=== PATIENT | female | born 1955 | race Caucasian/White ===

== ENCOUNTER → 2016-12-05 13:37 | Outpatient (CLI) | payer MEDICARE ==
[2013-12-19 15:15] VITALS: BMI 25.3
[~2016-12-05 13:37] MED LIST: ATROVENT 0.02%2.5 ML UPD; CALTRATE-600600 MG PO; CEFTIN500 MG PO; COUMADIN3 MG PO; DUONEB 2.5-0.5 M3 ML UPD; K-DUR20 MEQ PO; LASIX20 MG PO; LASIX40 MG PO; LOPRESSOR25 MG PO; MIRALAX17 GM PO; MUCINEX600 MG PO; NIFEREX CAPSULE60 MG; NIFEREX-150 F1 UDCAP; NORCO 7.5-3251 EACH PO; NYSTATIN ORAL SU5 ML PO; PERCOCET 5/3251 TA1 PO; PRILOSEC20 MG PO; ROBAXIN-750750 MG PO; SALINE NASAL SP45 ML NS; TYLENOL 325 MG325 MG PO; VICOPROFEN 7.5/1 TAB PO; XOPENEX 1.1.25 MG/3 UPD; ZESTORETIC 10/11 TAB PO; ZESTORETIC 20/11 TAB; ZOFRAN4 MG PO
== END | disposition home or self-care (01) ==
LOC: D.LAB 13:37
DX: B18.2 Chronic viral hepatitis C (principal); R97.8 Other abnormal tumor markers

== ENCOUNTER → 2017-07-09 09:00 | Outpatient (CLI) | payer MEDICARE ==
[2013-12-19 15:15] VITALS: BMI 25.3
== END | disposition home or self-care (01) ==
LOC: D.ECHO 05-12 09:00
DX: I27.2 Other secondary pulmonary hypertension (principal)

== ENCOUNTER → 2017-08-24 12:26 | Outpatient (CLI) | payer MEDICARE ==
[2013-12-19 15:15] VITALS: BMI 25.3
== END | disposition home or self-care (01) ==
LOC: D.MAMMO 09:45
DX: Z12.31 Encounter for screening mammogram for malignant neoplasm of breast (principal)

== ENCOUNTER → 2018-01-21 10:04 | Outpatient (CLI) | payer MEDICARE ==
[2013-12-19 15:15] VITALS: BMI 25.3
== END | disposition home or self-care (01) ==
LOC: D.ECHO 10:04
DX: I27.20 Pulmonary hypertension, unspecified (principal)

== ENCOUNTER → 2018-08-06 08:14 | Outpatient (CLI) | payer MEDICARE ==
[2013-12-19 15:15] VITALS: BMI 25.3
== END | disposition home or self-care (01) ==
LOC: D.ECHO 08:14
DX: I27.21 Secondary pulmonary arterial hypertension (principal)

== ENCOUNTER 2018-10-14 15:36 | Inpatient (IN) | payer MEDICARE ==
[~2018-10-14] VITALS: Ht 152.4 cm; Wt 53.2 kg
--- NOTE | ~2018-10-14 | MORECARE ---
CASE MANAGEMENT DISCHARGE SUMMARY PATIENT: ALEJANDRA DEE UNIT: [id number] ADM DATE: 10/14/18 AGE: 62 : 57 SEX: F ROOM/BED: D.2201 AUTHOR: SHALONDA SHI PHYSICIAN: REFERRING PHYSICIAN: MAYRA ZUNIGA DO DATE OF SERVICE: 10/18/18 Discharge Plan Patient Name: ALEJANDRA DEE Facility: [facility]:[place] : 1955 Planned Disposition: Home Anticipated Discharge Date: Discharge Date: Expected LOS: Initial Reviewer: [id number] Initial Review Date: 10/14/2018 Generated: 10/18/18 5:09 pm Comments DCP- Discharge Planning Updated by [email or web address]: Kate Butcher on 10/18/18 3:[address] Patient Name: ALEJANDRA DEE Encounter No: [id number] : 1955 Primary Insurance: [facility] [employer] Anticipated DC Date: Planned Disposition: Home External Planned Provider: : DCP follow-up note: Patient and family in agreement with discharge plan. Family at bedside. Denies discharge needs. No changes to plan. Case management will follow and assist as needed. Kate Butcher DCP- Discharge Planning Updated by [id number]: Brenna Keith on 10/15/18 1:[address] Patient Name: ALEJANDRA DEE Admission Status: Elective Accout number: [id number] Admission Date: 10-14-2018 : 1955 Admission Diagnosis: Attending: MAYRA ZUNIGA Current LOS: 1 Anticipated DC Date: Planned Disposition: Home Primary Insurance: [facility] [employer] Discharge Planning Comments: CM met with patient to assess discharge planning needs. Patient lives independently at home with her and plans to return there at discharge. Her will be the one to take her home. There are steps to her home, but she does not have any trouble with them. She wears 2L of O2 at night that she gets from [facility].. She denies any other DME or HH services. CM will continue to follow and assist with DC planning as needed Field Sales Associate: Brenna Keith DCPIA - Discharge Planning Initial Assessment Updated by [email or web address]: Brenna Keith on 10/15/18 1:57 pm * Is the patient Alert and Oriented? Yes * How many steps to enter\exit or inside your home? yes * PCP Jed * Pharmacy [facility] * Preadmission Environment Home with Family * ADLs Independent * Equipment Oxygen * Other Equipment [employer] * List name and contact numbers for known caregivers / representatives who currently or will assist patient after discharge: Chriss () [phone] * Verbal permission to speak to the caregivers and representatives has been obtained from the patient. N/A * Community resources currently utilized None * Additional services required to return to the preadmission environment? No * Can the patient safely return to the preadmission environment? Yes * Has this patient been hospitalized within the prior 30 days at any hospital? No Coverage Notice Reviewer: [id number] Andree Butcher Notice Issued Date-Time: 10/18/2018 15:58 Notice Type: IM Discharge Notice Notice Delivered To: Patient Relationship to Patient: Self Hot Header Operator Name: Delivery Method: HAND - Hand Delivered Venita Days: Prior Verbal Notification: Recipient Understood Notice: Yes Recipient Signature: Yes Med Rec Note Co-signed by Attending: Coverage Notice Comment: IMM explained, signed, copy given, original placed in MR Last DP export: 10/15/18 1:05 Patient Name: ALEJANDRA DEE Page [id number] at 1609 All edits/amendments must be made on the electronic document DICTATION DATE: 10/18/181608 MARKETING COPYWRITER: JOSE M 10/18/18 160 RPT#: [id number] DC DATE: STATUS: ADM IN [facility] [address] [place] [address] END OF REPORT
--- NOTE | ~2018-10-14 | EC ---
PATIENT:ALEJANDRA DEE DATE OF SERVICE: 10/14/18 SEX: F MEDICAL RECORD: [id number] DATE OF : [birth year] LOCATION:D.[facility] AGE OF PATIENT: 62 ADMISSION DATE: 10/14/18 REFERRING PHYSICIAN: INTERPRETING PHYSICIAN: SHABBIR KAMARA MD ECHOCARDIOGRAM REPORT ECHO CHARGES 4 ECHO COMPLETE Date: 10/17/18 CLINICAL DIAGNOSIS: PULMONARY HTN ECHOCARDIOGRAPHIC MEASUREMENTS (adult normal given) AC root (d.<3.7cm) 2.4 cm LV Septum d (<1.2 cm> 1.3 cm Valve Excursion 0.9 cm LV Septum (systole) 1.4 cm Left Atria (s.<4.0cm> 4.0 cm LVPW d(<1.2cm) 1.4 cm RV (d.<2.3cm) 5.1 cm LVPW (sytole) 1.6 cm LV diastole(<5.6CM) 4.0 cm MV E-F(>70mm/sec) cm LV systole 2.7 cm LVOT Diameter 1.7 cm MV exc.(>10mm) 1.9 cm Est.ejection fraction (50-75%) % DOPPLER: LVIT cm/sec A 110 cm/sec E 61.0 cm/sec LA cm/sec RVSP 66 mmHg LVOT 145 cm/sec AOP1/2T m/s Asc. Ao 238 cm/sec RVOT 118 cm/sec RA cm/sec PA 212 cm/sec AV Gradient Peak 22.65mmHg AV Mean 13.10mmHg AV Area 1.6 cm MV Gradient Peak 8.03 mmHg MV Mean 2.46 mmHg MV Area cm COMMENTS: Healthcare Sales Representative: 2 MAREK ALCARAZ Director Audience Marketing: 3 Dr. Wolf TAPE# PACS Pericardial Effusion N DATE OF SERVICE: 10/18/2018 Adequate 2D, color flow, spectral Doppler, and M-mode. LVH is present. LV internal dimensions are normal. Wall motion is normal. EF is greater than or equal to 55%. Aortic valve sclerosis with minimal restriction of leaflet motion. Peak gradient of 21 mmHg putting this at the mild range. Left atrium is normal at 4.1 cm. Mitral valve shows no prolapse. Mild MR. Right-sided chambers are grossly normal. Mild TR. ECHOCARDIOGRAM REPORT [id number] ALEJANDRA DEE TRANSINT:[id number] Voice Confirmation ID: [id number] DOCUMENT ID: [id number] SHABBIR KAMARA MD at 1546 CC: [id number] DICTATION DATE: 10/18/18 1015 DIRECTOR OF PATIENT FINANCIAL SERVICES: 10/18/18 1108 DIS IN 10/18/18 [place] [id number] [place] [id number]
--- NOTE | ~2018-10-14 | MORECARE ---
CASE MANAGEMENT DISCHARGE SUMMARY PATIENT: ALEJANDRA DEE UNIT: [id number] ADM DATE: 10/14/18 AGE: 62 : 57 SEX: F ROOM/BED: D.2201 AUTHOR: SHALONDA SHI PHYSICIAN: REFERRING PHYSICIAN: MAYRA ZUNIGA DO DATE OF SERVICE: 10/22/18 Discharge Plan Patient Name: ALEJANDRA DEE Facility: [facility]:[place] : 1955 Planned Disposition: Home Anticipated Discharge Date: Discharge Date: 10/18/2018 Expected LOS: 0 Initial Reviewer: [email or web address] Initial Review Date: 10/14/2018 Generated: 10/22/18 2:22 pm Comments DCP- Discharge Planning Updated by [id number]: Kate Butcher on 10/18/18 3:[address] Patient Name: ALEJANDRA DEE Encounter No: [id number] : 1955 Primary Insurance: [facility] [employer] SOLUTIONS Anticipated DC Date: Planned Disposition: Home External Planned Provider: : DCP follow-up note: Patient and family in agreement with discharge plan. Family at bedside. Denies discharge needs. No changes to plan. Case management will follow and assist as needed. Kate Butcher DCP- Discharge Planning Updated by [id number]: Brenna Keith on 10/15/18 1:[address] Patient Name: ALEJANDRA DEE Admission Status: Elective Accout number: [id number] Admission Date: 10-14-2018 : 1955 Admission Diagnosis: Attending: MAYRA ZUNIGA Current LOS: 1 Anticipated DC Date: Planned Disposition: Home Primary Insurance: [facility] [employer] SOLUTIONS Discharge Planning Comments: CM met with patient to assess discharge planning needs. Patient lives independently at home with her and plans to return there at discharge. Her will be the one to take her home. There are steps to her home, but she does not have any trouble with them. [facility] She denies any other DME or HH services. CM will continue to follow and assist with DC planning as needed Neurological Surgeon: Brenna Keith DCPIA - Discharge Planning Initial Assessment Updated by [id number]: Brenna Keith on 10/15/18 1:57 pm * Is the patient Alert and Oriented? Yes * How many steps to enter\exit or inside your home? yes * PCP Jed * [facility] * Preadmission Environment Home with Family * ADLs Independent * Equipment Oxygen * Other Equipment [employer] * List name and contact numbers for known caregivers / representatives who currently or will assist patient after discharge: Chriss () [phone] * Verbal permission to speak to the caregivers and representatives has been obtained from the patient. N/A * Community resources currently utilized None * Additional services required to return to the preadmission environment? No * Can the patient safely return to the preadmission environment? Yes * Has this patient been hospitalized within the prior 30 days at any hospital? No Coverage Notice Reviewer: [email or web address] Andree Butcher Notice Issued Date-Time: 10/18/2018 15:58 Notice Type: IM Discharge Notice Notice Delivered To: Patient Relationship to Patient: Self Upholstery Department Supervisor Name: Delivery Method: HAND - Hand Delivered Venita Days: Prior Verbal Notification: Recipient Understood Notice: Yes Recipient Signature: Yes Med Rec Note Co-signed by Attending: Coverage Notice Comment: IMM explained, signed, copy given, original placed in MR Last DP export: 10/18/18 3:09 Patient Name: ALEJANDRA DEE Page [id number] at 1322 All edits/amendments must be made on the electronic document DICTATION DATE: 10/22/18 1321 EXHAUST TENDER: JOSE M 10/22/18 1321 RPT#: [id number] DC DATE:10/18/18 STATUS: DIS IN [facility] [address] [place] [address] END OF REPORT
--- NOTE | ~2018-10-14 | CN ---
PATIENT NAME:ALEJANDRA NEWTON MEDICAL RECORD: [id number] : [birth year] LOCATION:D.[facility] [address] ADMIT DATE: 10/14/18 ACCOUNT: [id number] CONSULTING PHYSICIAN: FADUMO WILEY MD REFERRING PHYSICIAN: MAYRA ZUNIGA DO DATE OF CONSULTATION: 10/15/2018 CONSULT REQUESTING PHYSICIAN: Randal Taveras MD REASON FOR CONSULTATION: Hemoptysis and pneumonia, left upper lobe. HISTORY OF PRESENT ILLNESS: Ms. Newton is a 62-year-old female, very well known to me, who has a history of COPD, hepatitis, and pulmonary hypertension. The patient is sick for the last 2-3 days. She is coughing. The cough is productive with white yellow color sputum and with blood. She was seen in Dr. Zuniga's office and directly admitted for IV antibiotic and further workup. REVIEW OF SYSTEMS: As in history of present illness. PAST MEDICAL HISTORY: 1. Pulmonary hypertension. 2. Hepatitis C. 3. Gastroesophageal reflux disease. 4. Hypertension. 5. COPD. PAST SURGICAL HISTORY: 1. Status post laparoscopic cholecystectomy. 2. Hysterectomy. 3. She has a history of biopsy of the breast nodule. ALLERGIES: There are no known drug allergies. MEDICATIONS: On [employer] is reviewed. PERSONAL AND SOCIAL HISTORY: The patient is an ex-smoker. She is a nondrinker. FAMILY HISTORY: Noncontributory. PHYSICAL EXAMINATION: GENERAL: Now, the patient is lying comfortably in bed. She is not in acute distress. VITAL SIGNS: The blood pressure is 116/58, pulse is 82, respirations 17, temperature is 98.5, SpO2 is 91% on 2 liters nasal cannula. HEENT: Conjunctivae are pink. Sclerae are not icteric. NECK: Supple, no JVD. CHEST: The chest excursion is minimal on both sides. Crackle at the base. No wheezing. HEART: Rhythm regular, normal sound. Loud P2 component of the heart sound. ABDOMEN: Soft, bowel sounds present. No hepatosplenomegaly. RECTAL: Deferred. EXTREMITIES: No cyanosis, no clubbing, no pedal edema. CENTRAL NERVOUS SYSTEM: The patient is awake and alert. There are no obvious cranial nerve abnormality. The gait was not tested. CONSULT REPORT [id number] ALEJANDRA NEWTON LABORATORY DATA: CBC: WBC 3.5, hemoglobin 9.7, hematocrit 29.2, the platelet count is 108. Chemistry: Sodium 142, potassium 3.6, BUN is 9, creatinine 0.7. The proBNP 274. AST is 67, ALT is 59, alkaline phosphatase 97. D-dimer is positive, the level is 2. CHEST RADIOGRAPH: There is infiltrate in left upper lobe pneumonia. IMPRESSION: 1. Pneumonia, left upper lobe, consider community-acquired pneumonia. 2. Hemoptysis, most likely secondary to pneumonia, rule out pulmonary thromboembolism. 3. Qkcvv-yg-ytxrrsl hypoxic respiratory failure. 4. COPD exacerbation. 5. Pulmonary hypertension. 6. Ex-smoker. 7. Hepatitis C. RECOMMENDATION: 1. Supplemental oxygen. 2. Continue empiric antibiotic. 3. Methylprednisolone IV. 4. Albuterol/ipratropium nebulizer. 5. Brovana/budesonide nebulizer. 6. Check the CTA and ultrasound of the lower extremity to rule out PTE. 7. Follow up labs and chest radiograph. Dr. Taveras, thank you for involving me in the care of Ms. Newton. TRANSINT:[id number] Voice Confirmation ID: [id number] DOCUMENT ID: [id number] FADUMO WILEY MD CC: [id number] DICTATION DATE: 10/15/18 1435 [employer]: 10/15/18 1537 ADM IN [place] [id number] [place] [address]
--- NOTE | ~2018-10-14 | MORECARE ---
CASE MANAGEMENT DISCHARGE SUMMARY PATIENT: ALEJANDRA DEE UNIT: [id number] ADM DATE: 10/14/18 AGE: 62 : 57 SEX: F ROOM/BED: D.2201 AUTHOR: JOSE GUADALUPEDOC PHYSICIAN: REFERRING PHYSICIAN: MAYRA ZUNIGA DO DATE OF SERVICE: 10/15/18 Discharge Plan Patient Name: ALEJANDRA DEE Facility: [facility]:[place] : 1955 Planned Disposition: Home Anticipated Discharge Date: Discharge Date: Expected LOS: Initial Reviewer: [email or web address] Initial Review Date: 10/14/2018 Generated: 10/15/18 3:05 pm Comments DCP- Discharge Planning Updated by [id number]: Brenna Keith on 10/15/18 1:[address] Patient Name: ALEJANDRA DEE Admission Status: Elective Accout number: [id number] Admission Date: 10-14-2018 : 1955 Admission Diagnosis: Attending: MAYRA ZUNIGA Current LOS: 1 Anticipated DC Date: Planned Disposition: Home Primary Insurance: [facility] MEDIC[facility] SOLUTIONS Discharge Planning Comments: CM met with patient to assess discharge planning needs. Patient lives independently at home with her and plans to return there at discharge. Her will be the one to take her home. There are steps to her home, but she does not have any trouble with them. [facility] She denies any other DME or HH services. CM will continue to follow and assist with DC planning as needed Drug Safety Assistant: Brenna eKith DCPIA - Discharge Planning Initial Assessment Updated by [email or web address]: Brenna Keith on 10/15/18 1:57 pm * Is the patient Alert and Oriented? Yes * How many steps to enter\exit or inside your home? yes * PCP Jed * [facility] * Preadmission Environment Home with Family * ADLs Independent * Equipment Oxygen * Other Equipment [employer] * List name and contact numbers for known caregivers / representatives who currently or will assist patient after discharge: Chriss () [phone] * Verbal permission to speak to the caregivers and representatives has been obtained from the patient. N/A * Community resources currently utilized None * Additional services required to return to the preadmission environment? No * Can the patient safely return to the preadmission environment? Yes * Has this patient been hospitalized within the prior 30 days at any hospital? No Patient Name: ALEJANDRA DEE Page [id number] at 1405 All edits/amendments must be made on the electronic document DICTATION DATE: 10/15/181403 SOFTWARE DEPLOYMENT ENGINEER: JOSE M 10/15/181403 RPT#: [id number] DC DATE: STATUS: ADM IN [facility] [address] [place] [address] END OF REPORT
[2018-10-14 17:23] LABS: ALBUMIN 2.4 g/dL (3.4-5.0); ALKALINE PHOSPHATASE 97 U/L (46-116); ALT (SGPT) 59 U/L (10-68); BILIRUBIN - TOTAL 1.16 mg/dL (0.2-1.3); CALC OSMOLALITY 278 mosm/kg (275-300); CALCIUM 7.6 mg/dL (8.5-10.1); CARBON DIOXIDE 20.1 mmol/L (21.0-32.0); CHLORIDE - SERUM 108 mmol/L (98-107); CREATININE - SERUM 0.5 mg/dL (0.6-1.3); GLUCOSE 79 mg/dL (74-106); POTASSIUM - SERUM 3.4 mmol/L (3.5-5.1); PROTEIN - SERUM 6.1 g/dL (6.4-8.2); SODIUM 141 mmol/L (136-145); UREA NITROGEN 11 mg/dL (7-18); eGFR NON AFRICAN AMERICAN > 90 mL/min (90-120)
[2018-10-14 17:29] VITALS: BP 139/77; BMI 22.8
[2018-10-14 17:44] LABS: THYROID STIMULATING HORMONE 2.6 uIU/mL (0.36-3.74)
[2018-10-14 19:00] VITALS: BP 103/51
[2018-10-15] VITALS (7 sets, daily range): BP systolic 84–116; BP diastolic 41–59
[2018-10-15 05:01] LABS: BASOPHILS 0.9 % (0-2); EOSINOPHILS 0.9 % (0-7); HEMATOCRIT 29.2 % (36.0-48.0); HEMOGLOBIN 9.7 g/dL (12-16); IMMATURE GRANULOCYTES 0.3 % (0-5); LYMPHOCYTES 33.8 % (15-50); MCH 30.8 pg (26.0-34.0); MCHC 33.2 g/dL (31.0-37.0); MCV 92.7 fL (80.0-100.0); MEAN PLATELET VOLUME 11.7 fL (7.4-10.4); MONOCYTES 10.7 % (2-11); NEUTROPHILS 53.4 % (40-80); PLATELET COUNT 108 10x3/uL (130-400); RBC 3.15 10x6/uL (4.00-5.40); RDW 14.8 % (11.5-14.5); WBC 3.5 10x3/uL (4.8-10.8)
[2018-10-15 05:25] LABS: INR 2.37 (0.85-1.17); PROTIME 25.2 SECONDS (11.6-15.0)
[2018-10-15 05:30] LABS: ALKALINE PHOSPHATASE 86 U/L (46-116); ALT (SGPT) 49 U/L (10-68); BILIRUBIN - TOTAL 0.82 mg/dL (0.2-1.3); CALC OSMOLALITY 280 mosm/kg (275-300); CALCIUM 7.1 mg/dL (8.5-10.1); CARBON DIOXIDE 19.4 mmol/L (21.0-32.0); CHLORIDE - SERUM 111 mmol/L (98-107); GLUCOSE 87 mg/dL (74-106); POTASSIUM - SERUM 3.6 mmol/L (3.5-5.1); PROTEIN - SERUM 5.5 g/dL (6.4-8.2); SODIUM 142 mmol/L (136-145); UREA NITROGEN 9 mg/dL (7-18); eGFR NON AFRICAN AMERICAN 90 mL/min (90-120)
[2018-10-15 05:32] LABS: CREATININE - SERUM 0.7 mg/dL (0.6-1.3)
[2018-10-16] VITALS: BP 112/59
[2018-10-16 04:00] VITALS: BP 89/57
[2018-10-16 06:26] LABS: BASOPHILS 0 % (0-2); EOSINOPHILS 0 % (0-7); HEMATOCRIT 30.8 % (36.0-48.0); HEMOGLOBIN 10.1 g/dL (12-16); IMMATURE GRANULOCYTES 0.6 % (0-5); LYMPHOCYTES 17.5 % (15-50); MCHC 32.8 g/dL (31.0-37.0); MCV 94.5 fL (80.0-100.0); MEAN PLATELET VOLUME 10.7 fL (7.4-10.4); MONOCYTES 3.7 % (2-11); NEUTROPHILS 78.2 % (40-80); RBC 3.26 10x6/uL (4.00-5.40); RDW 14.9 % (11.5-14.5); WBC 3.6 10x3/uL (4.8-10.8)
[2018-10-16 06:33] LABS: PLATELET COUNT 73 10x3/uL (130-400)
[2018-10-16 06:47] LABS: INR 2.08 (0.85-1.17); PROTIME 22.7 SECONDS (11.6-15.0)
[2018-10-16 08:36] VITALS: BP 101/62
[2018-10-16 13:15] VITALS: BP 114/70
[2018-10-16 16:44] VITALS: BP 106/64
[2018-10-16 18:00] VITALS: Ht 152.4 cm; Wt 53.2 kg
[2018-10-16 20:00] VITALS: BP 97/55
[2018-10-17] VITALS (9 sets, daily range): BP systolic 96–119; BP diastolic 54–75
[2018-10-17 06:11] LABS: BASOPHILS 0.1 % (0-2); EOSINOPHILS 0.2 % (0-7); HEMATOCRIT 28.7 % (36.0-48.0); HEMOGLOBIN 9.3 g/dL (12-16); IMMATURE GRANULOCYTES 0.2 % (0-5); MCH 30.9 pg (26.0-34.0); MCHC 32.4 g/dL (31.0-37.0); MCV 95.3 fL (80.0-100.0); MONOCYTES 6.9 % (2-11); NEUTROPHILS 77.6 % (40-80); PLATELET COUNT 80 10x3/uL (130-400); RBC 3.01 10x6/uL (4.00-5.40); RDW 15.5 % (11.5-14.5); WBC 9.1 10x3/uL (4.8-10.8)
[2018-10-17 06:34] LABS: INR 2.59 (0.85-1.17)
[2018-10-18 04:00] VITALS: BP 101/56
[2018-10-18 04:39] LABS: BASOPHILS 0.5 % (0-2); EOSINOPHILS 3.4 % (0-7); HEMATOCRIT 29.2 % (36.0-48.0); HEMOGLOBIN 9.8 g/dL (12-16); IMMATURE GRANULOCYTES 0.2 % (0-5); LYMPHOCYTES 23.9 % (15-50); MCH 31.9 pg (26.0-34.0); MCHC 33.6 g/dL (31.0-37.0); MCV 95.1 fL (80.0-100.0); MEAN PLATELET VOLUME 11.6 fL (7.4-10.4); MONOCYTES 9.6 % (2-11); NEUTROPHILS 62.4 % (40-80); PLATELET COUNT 86 10x3/uL (130-400); RBC 3.07 10x6/uL (4.00-5.40); RDW 15.5 % (11.5-14.5)
[2018-10-18 04:49] LABS: WBC 4.2 10x3/uL (4.8-10.8)
[2018-10-18 04:50] LABS: PROTIME 22.1 SECONDS (11.6-15.0)
[2018-10-18 04:51] LABS: INR 2.01 (0.85-1.17)
[2018-10-18 05:00] LABS: ALBUMIN 1.8 g/dL (3.4-5.0); ALKALINE PHOSPHATASE 86 U/L (46-116); ALT (SGPT) 43 U/L (10-68); BILIRUBIN - TOTAL 0.63 mg/dL (0.2-1.3); CALC OSMOLALITY 278 mosm/kg (275-300); CALCIUM 7.4 mg/dL (8.5-10.1); CARBON DIOXIDE 23.9 mmol/L (21.0-32.0); CHLORIDE - SERUM 110 mmol/L (98-107); CHOL - HDL RATIO 1.8 ratio (2.3-4.1); CHOLESTEROL, TOTAL 81 mg/dL (0-200); CREATININE - SERUM 0.5 mg/dL (0.6-1.3); GLUCOSE 72 mg/dL (74-106); HDL CHOLESTEROL 46 mg/dL (32-96); LDL CHOLESTEROL 28 mg/dL (0-100); LDL-HDL RATIO 0.6 ratio (1.5-3.5); POTASSIUM - SERUM 3.9 mmol/L (3.5-5.1); PRE-ALBUMIN 7.4 mg/dL (18.0-35.7); SODIUM 141 mmol/L (136-145); TRIGLYCERIDE 35 mg/dL (30-200); UREA NITROGEN 11 mg/dL (7-18); eGFR NON AFRICAN AMERICAN > 90 mL/min (90-120)
[2018-10-18 08:42] VITALS: BP 113/66
[2018-10-18] MEDS ORDERED: COUMADIN2 MG PO (15:20)
[2018-10-18] MEDS ORDERED: ZPAK PO (15:20)
[2018-10-18] MEDS ORDERED: GUAIFENESI100 MG/5 M PO (15:22)
[2018-10-19 07:28] LABS: ALPHA FETOPROTEIN -(TUMOR MRK) 30.9 ng/mL (0.0-8.3)
[2018-10-19 12:16] LABS: HEPATITIS C ANTIBODY >11.0 S/CO RAT (0.0-0.9)
[2018-10-19 13:15] LABS: HELICOBACTER PYLORI IGM AB <9.0 units (0.0-8.9)
== END 2018-10-18 17:33 | disposition home or self-care (01) | DRG 193 ==
LOC: D.MS 15:36
PROVIDERS: Family Medicine; Internal Medicine Gastroenterology
DX: J18.9 Pneumonia, unspecified organism (principal); J96.01 Acute respiratory failure with hypoxia; J44.0 Chronic obstructive pulmonary disease with (acute) lower respiratory infection; J96.11 Chronic respiratory failure with hypoxia; I10 Essential (primary) hypertension; I27.20 Pulmonary hypertension, unspecified; B18.2 Chronic viral hepatitis C

== ENCOUNTER → 2019-03-04 10:15 | Outpatient (CLI) | payer MEDICARE ==
[2018-10-16 18:00] VITALS: BMI 22.8
[~2019-03-04 10:15] MED LIST changes: +COUMADIN2 MG PO; +GUAIFENESI100 MG/5 M PO; +ZPAK PO
== END | disposition home or self-care (01) ==
LOC: D.ECHO 02-04 09:00
PROVIDERS: ATTEND Nurse Practitioner Acute Care
DX: I27.20 Pulmonary hypertension, unspecified (principal)

== ENCOUNTER 2019-07-05 19:00 | Outpatient (CLI) | payer MEDICARE ==
[2018-10-16 18:00] VITALS: BMI 22.8
== END 2019-07-05 23:59 | disposition home or self-care (01) ==
LOC: D.MAMMO 19:00
PROVIDERS: ATTEND Clinical Nurse Specialist Adult Health
DX: Z12.31 Encounter for screening mammogram for malignant neoplasm of breast (principal)

== ENCOUNTER 2019-08-17 08:00 | Outpatient (CLI) | payer MEDICARE ==
[2018-10-16 18:00] VITALS: BMI 22.8
== END 2019-08-17 23:59 | disposition home or self-care (01) ==
LOC: D.MAMMO 08:00
PROVIDERS: ATTEND Clinical Nurse Specialist Adult Health
DX: R92.8 Other abnormal and inconclusive findings on diagnostic imaging of breast (principal)

== ENCOUNTER → 2019-09-07 10:31 | Outpatient (CLI) | payer MEDICARE ==
[2018-10-16 18:00] VITALS: BMI 22.8
== END | disposition home or self-care (01) ==
LOC: D.ECHO 10:31
PROVIDERS: ATTEND Internal Medicine Pulmonary Disease
DX: I27.21 Secondary pulmonary arterial hypertension (principal)

== ENCOUNTER → 2020-01-10 09:24 | Outpatient (CLI) | payer MEDICARE ==
[2018-10-16 18:00] VITALS: BMI 22.8
== END | disposition home or self-care (01) ==
LOC: D.ECHO 09:24
PROVIDERS: ATTEND Internal Medicine Pulmonary Disease
DX: I27.21 Secondary pulmonary arterial hypertension (principal)

== ENCOUNTER → 2020-03-13 20:55 | Outpatient (CLI) | payer MEDICARE ==
[2018-10-16 18:00] VITALS: BMI 22.8
== END | disposition home or self-care (01) ==
LOC: D.MAMMO 15:00
PROVIDERS: ATTEND Clinical Nurse Specialist Adult Health
DX: R92.8 Other abnormal and inconclusive findings on diagnostic imaging of breast (principal)

== ENCOUNTER → 2020-07-20 08:32 | Outpatient (CLI) | payer MEDICARE ==
[2018-10-16 18:00] VITALS: BMI 22.8
== END | disposition home or self-care (01) ==
LOC: D.ECHO 08:32
PROVIDERS: ATTEND Internal Medicine Pulmonary Disease
DX: I50.22 Chronic systolic (congestive) heart failure (principal)

== ENCOUNTER → 2021-01-24 09:34 | Outpatient (CLI) | payer MEDICARE ==
[2018-10-16 18:00] VITALS: BMI 22.8
== END | disposition home or self-care (01) ==
LOC: D.RT 09:00
PROVIDERS: ATTEND Internal Medicine Pulmonary Disease
DX: I27.21 Secondary pulmonary arterial hypertension (principal); J44.9 Chronic obstructive pulmonary disease, unspecified; Z11.52 Encounter for screening for COVID-19